=== PATIENT | male | born 1965 | race Caucasian/White ===

== ENCOUNTER → 2016-08-17 | Outpatient (CLI) | payer OTHER ==
[~2016-08-17] VITALS: Ht 182.9 cm; Wt 133.8 kg
[~2016-08-17] MED LIST: ADDERALL 20 MG20 MG PO; ALEVE220 MG PO; CARDIZEM CD180 MG PO; COUMADIN 4 MG TA4 M1 PO; COUMADIN 5 MG TA5 M1 PO; FLOMAX0.4 MG PO; IMITREX100 MG PO; LASIX 40 MG TAB40 M2 PO; LISINOPRIL5 MG PO; METHADONE HCL5 MG PO; NEURONTIN 300300 M1 PO; NEURONTIN 400400 M1 PO; PERCOCET 10-321 EACH PO; POTASSIUM20 PO; SORINE 80 MG TA80 M1; SOTALOL 120 MG120 MG PO; SPIRIVA INH; STOOL SOFTENER100 MG PO; SUBOXONE 8 MG-1 EAC3 SL; TESTOSTERO200 MG/1 M IM; TOFRANIL50 MG PO; XANAX1 MG PO
--- NOTE | ~2016-08-17 | HPC ---
[facility] [place] [address] PAIN MANAGEMENT CONSULTATION Name: LOLLYTODD JENNIFER Room #: REG [facility] Caroline.#: [id number] Admission: 08/17/16 Attend Phys: Ck Stoll DO Discharge: Date of : 65 Report #: [id number] THIS REPORT FOR: //name// CC: Rafael Stoll DATE OF SERVICE: 08/17/2016 The patient is a 51-year-old gentleman being treated for chronic pain syndrome, status post lumbar decompressive laminectomy and axial back pain, requiring complex medication management. Comorbidities include DJD bilateral knees, left greater than right. The patient was last seen in the pain clinic on 06/18/2016, continued on methadone increased from 5 t.i.d. to 2 b.i.d. (10 mg b.i.d.). He returns to pain clinic today noting medications have been helpful, though he is scheduled to get a left knee arthroscopy in the near future. He notes the pain has been chronic since 2006, sharp and aching pain, rates it at a 6 presently with current medication. We reviewed the fact that opiate medications are being used to provide analgesia adequate to support activities of daily living, not attempting to achieve a specific pain score on the 0-10 Visual Analog Scale. The current opiate medications are providing sufficient analgesia to allow the patient to participate in activities of daily living. The patient is not exhibiting any aberrant behavior suggestive of drug diversion. The patient is not having any adverse reactions to medications. The patient is not suffering from daytime somnolence or mental acuity changes. The patient is managing opiate-induced constipation with appropriate mruu-loe-dryyyha agents and dietary considerations. The patient was counseled on concern for caution with operating a motor vehicle while using opiate medications. A physical exam was performed and the patient's functional status was evaluated. All patients with back pain were advised against the bed rest greater than 4 days and were advised to return to normal activities. Pain score assessment was noted and the treatment plan was reviewed with the patient. All current medications, both prescribed and OTC were reviewed and reconciled on the electronic medical record. Tobacco screening was accomplished and smoking cessation was advised when indicated. BMI was noted and diet/exercise modification was recommended for all patients following outside normal parameters. I reviewed with the patient today their responsibilities to safeguard prescription medications, reviewed their responsibility to utilize medications only as prescribed by the physician. They are to seek and receive pain medications only from 1 physician group ( [facility]). They are to use 1 pharmacy and keep the clinic informed if they change pharmacies. Their responsibilities include making followup visits in a timely fashion and to avoid abrupt discontinuation of medication usage. Their responsibilities further include bringing their medications (bottles from the pharmacy with [address] [address] PAIN MANAGEMENT CONSULTATION Name: TODD AMBROCIO Room #: REG CLKiana Polanco#: [id number] Admission: 08/17/16 Attend Phys: Ck Stoll DO Discharge: Date of : 65 Report #: [id number] pills) to the visit for possible confirmation of pill counts and the patient understands it is their responsibility to submit to random drug screens to ensure both that the medications prescribed are present, and that no other controlled substances are present. All prescriptions provided today were generated electronically. PHYSICAL EXAMINATION: Shows a 51-year-old gentleman, BMI is 40 kilograms per meter squared. Vital signs are stable. Rises from chair using armrests, antalgic gait favoring the left leg. Well-healed surgical scar across the back. Alert and oriented to person, place and time, judged to be a reasonable historian. Modestly antalgic gait. Lumbar flexion is limited. ASSESSMENT: Symptomatic chronic pain syndrome, status post lumbar decompressive laminectomy, degenerative joint disease affecting bilateral knees, left greater than right and axial back pain, requiring complex medication management. RECOMMENDATION: Continue methadone 10 mg b.i.d. Continue gabapentin unchanged 300 mg one in the morning and two at night 400 mg. Did discuss postoperative pain with the patient. If his surgeon provides a short course of hydrocodone or oxycodone, I am willing to have the patient utilize that prescription. I suggest that he not change his methadone, continue 10 mg b.i.d. throughout the surgery and post-surgical course. I talked about need to be aggressive with physical therapy, postoperative. I will be happy to see him in 2 months for reevaluation. I did ask that he bring prescription bottles with him that the orthopedist provides. <ELECTRONICALLY SIGNED> By: Ck Stoll DO 08/21/16 0811 [id number] Ck Stoll DO /nt
[2016-08-17 14:42] VITALS: BP 107/76
== END | disposition home or self-care (01) ==
LOC: PAIN 07:11
DX: G89.4 Chronic pain syndrome (principal); M17.0 Bilateral primary osteoarthritis of knee

== ENCOUNTER → 2016-10-12 | Outpatient (CLI) | payer OTHER ==
[~2016-10-12] VITALS: Ht 182.9 cm; Wt 133.2 kg
[~2016-10-12] MED LIST changes: +METHADONE HCL 110 M1 PO
--- NOTE | ~2016-10-12 | HPC ---
[facility] [place] [address] PAIN MANAGEMENT CONSULTATION Name: TODD AMBROCIO Room #: REG CL Caroline.#: [id number] Admission: 10/12/16 Attend Phys: Ck Stoll, DO Discharge: Date of : 65 Report #: [id number] THIS REPORT FOR: //name// CC: Rafael Stoll The patient is a very pleasant 51-year-old gentleman being treated for lumbar radiculopathy status post decompressive laminectomy, requiring complex medication management, axial back pain. Last seen in the pain clinic on 06/18/2016, we increased methadone to 10 mg b.i.d., increased gabapentin from 300 to 400 mg 1 in the morning and 2 at night. He returns to pain clinic today noting medications are providing sufficient analgesia to participate in activities of daily living. Prior urine drug screen on 04/17/2016, was positive for prescribed medications. He is scheduled to have left knee arthroscopy with Dr. Shawn Carias October 15. Dr. Carias has given a prescription for hydrocodone 5/325, dispense 30 tablets for postoperative pain. I am aware of this and I agreed to let the patient continue that medication. I did suggest that he continue with his baseline methadone 10 mg b.i.d. throughout. He is having some increasing pain in the left hip. He has prior had a inguinal herniorrhaphy at this level. He is followed up with his general surgeon who feels that the hernia repair is not the issue, despite this he does have significant left testicular pain. He has had an ultrasound of this area. He may benefit from a CT scan of the abdominal wall at some point (?). Dr. Carias notes there may also have a component of some primary hip mediated pain, which certainly is reasonable as well. Today, we have elected to continue baseline narcotic unchanged, follow up after his knee arthroscopy, I have taken the liberty of writing for 2 months of current medication. Strongly recommend copious use of ice after physical therapy subsequent to the left knee arthroscopy. When I see him back in about 8 weeks, he should be 7 weeks postop from his knee surgery, we will reevaluate the inguinal hernia area. He may benefit from increasing gabapentin from 400 to 600 mg 1 in the morning and 2 at night. Hopefully, we will have his hip evaluated by Dr. Carias in the interim. If not, we can certainly order an x-ray of same. We reviewed the fact that opiate medications are being used to provide analgesia adequate to support activities of daily living, not attempting to achieve a specific pain score on the 0-10 Visual Analog Scale. The current opiate medications are providing sufficient analgesia to allow the patient to participate in activities of daily living. The patient is not exhibiting any aberrant behavior suggestive of drug diversion. The patient is not having any adverse reactions to medications. The patient is not suffering from daytime somnolence or mental acuity changes. The patient is managing opiate-induced constipation with appropriate eoer-uky-uywltxa agents and dietary considerations. The patient was counseled on concern for caution with operating [address] [address] PAIN MANAGEMENT CONSULTATION Name: TODD AMBROCIO Room #: REG TUAN Polanco#: [id number] Admission: 10/12/16 Attend Phys: Ck Stoll DO Discharge: Date of : 65 Report #: [id number] a motor vehicle while using opiate medications. A physical exam was performed and the patient's functional status was evaluated. All patients with back pain were advised against the bed rest greater than 4 days and were advised to return to normal activities. Pain score assessment was noted and the treatment plan was reviewed with the patient. All current medications, both prescribed and OTC were reviewed and reconciled on the electronic medical record. Tobacco screening was accomplished and smoking cessation was advised when indicated. BMI was noted and diet/exercise modification was recommended for all patients following outside normal parameters. I reviewed with the patient today their responsibilities to safeguard prescription medications, reviewed their responsibility to utilize medications only as prescribed by the physician. They are to seek and receive pain medications only from 1 physician group ( [facility]). They are to use 1 pharmacy and keep the clinic informed if they change pharmacies. Their responsibilities include making followup visits in a timely fashion and to avoid abrupt discontinuation of medication usage. Their responsibilities further include bringing their medications (bottles from the pharmacy with residual pills) to the visit for possible confirmation of pill counts and the patient understands it is their responsibility to submit to random drug screens to ensure both that the medications prescribed are present, and that no other controlled substances are present. All prescriptions provided today were generated electronically. PHYSICAL EXAMINATION: Shows a 51-year-old gentleman, BMI is 39.8 kg/m2. Alert and oriented to person, place and time, judged to be a reasonable historian. Vital signs are stable as noted in the EMR. Rises from chair using armrest, modestly antalgic gait favoring the left lower extremity, difficult to tell if this is primary knee or hip pain. Diffuse tenderness across the low back. Abdominal exam was deferred, but he does have tenderness in the left groin and left testicle. ASSESSMENT: Neuropathic pain, lumbar radiculopathy, status post decompressive laminectomy, axial back pain requiring complex medication management. RECOMMENDATIONS: As noted above, continue methadone 10 mg b.i.d. for another 2 months. Gabapentin 400 mg 1 in the morning and 2 at night. Follow up again in 2 months for reevaluation. Discharged in good and stable condition. The patient was seen for a prolonged visit today, approximately 25 minutes, [facility] [address] [place] [address] PAIN MANAGEMENT CONSULTATION Name: TODD AMBROCIO Room #: REG CL Caroline.#: [id number] Admission: 10/12/16 Attend Phys: Ck Stoll DO Discharge: Date of : 65 Report #: [id number] than 50% of time spent counseling the patient, reviewing therapeutic issues and comorbidities. By: [id number] Ck Stoll DO /nt
[2016-10-12 09:46] VITALS: BP 138/68
== END | disposition home or self-care (01) ==
LOC: PAIN 07:02
DX: M54.16 Radiculopathy, lumbar region (principal); G62.9 Polyneuropathy, unspecified; M54.9 Dorsalgia, unspecified

== ENCOUNTER → 2016-12-11 | Outpatient (CLI) | payer OTHER ==
[~2016-12-11] VITALS: Ht 182.9 cm; Wt 137.8 kg
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
[2016-12-11 13:34] VITALS: BP 159/72
== END | disposition home or self-care (01) ==
LOC: PAIN 06:25
DX: M54.16 Radiculopathy, lumbar region (principal); G89.4 Chronic pain syndrome; Z68.41 Body mass index [BMI] 40.0-44.9, adult; F17.200 Nicotine dependence, unspecified, uncomplicated

== ENCOUNTER → 2017-02-19 | Outpatient (CLI) | payer OTHER ==
[~2017-02-19] VITALS: Ht 182.9 cm; Wt 127.9 kg
[~2017-02-19] MED LIST changes: +AUGMENTIN 875875 MG PO; +NEURONTIN600 MG PO
--- NOTE | ~2017-02-19 | HPC ---
[facility] [place] [address] PAIN MANAGEMENT CONSULTATION Name: LOLLYTODD JENNIFER Room #: REG TUAN Polanco#: [id number] Admission: 02/19/17 Attend Phys: Ck Stoll, DO Discharge: Date of : 65 Report #: [id number] THIS REPORT FOR: //name// CC: Rafael Stoll The patient is a 51-year-old gentleman, prior seen in pain clinic at 12/11/2016. He was referred to me by Dr. Saad Arriaga, a longer history of intermittent alcohol abuse and opiate habituation. He has been sober for quite some time, Suboxone became expensive to the point, he was unable to utilize this agent. I was asked to consider methadone treatment for this gentleman and he has been stable on this agent. He has been on methadone 10 mg t.i.d. now for some time. He is in reasonably stable. He did follow up with [facility] regarding his knee surgery. He had surgery their back in September. He was hospitalized this past December for left lower quadrant abdominal pain and found to have diverticulitis. He has a colonoscopy scheduled on the . Surgeon at the time of hospitalization did give him antibiotics and unfortunately also prescription for hydrocodone. I did admonished the patient today that he is under opiate consent to treat contract with me and is to use NO opioids from any other provider. While I enabled him to use opiates per the orthopedics physician after his scheduled knee surgery, I knew that was going to be a short course and reasonable with osseous pathology secondary to the surgery. However, I did suggest that he should not use opiate analgesics for diverticulitis, as tends to slow GI transit, increases constipation concerns and exacerbates diverticulitis. He simply has abdominal pain for diverticulitis and this will resolve as the antibiotics help with any infection and "tincture of time" allows for decrease in colon inflammation. He does now understand that he should not be using any po opioids for this abd pain . Ongoing left knee pain, low back, chronic pain remains problematic, rates his pain at 8 on a VAS. PHYSICAL EXAMINATION: Shows 51-year-old gentleman, BMI is 38.2 kilograms per meter squared. Vital signs otherwise stable. We reviewed the fact that opiate medications are being used to provide analgesia adequate to support activities of daily living, not attempting to achieve a specific pain score on the 0-10 Visual Analog Scale. The current opiate medications are providing sufficient analgesia to allow the patient to participate in activities of daily living. The patient is not exhibiting any aberrant behavior suggestive of drug diversion. The patient is not having any adverse reactions to medications. The patient is not suffering from daytime somnolence or mental acuity changes. The patient is managing opiate-induced constipation with appropriate fojd-gzn-barpdfw agents and dietary considerations. The patient was counseled on concern for caution with operating a motor vehicle while using opiate medications. [address] [address] PAIN MANAGEMENT CONSULTATION Name: TODD AMBROCIO Room #: REG TUAN Polanco#: [id number] Admission: 02/19/17 Attend Phys: Ck Stoll DO Discharge: Date of : 65 Report #: [id number] A physical exam was performed and the patient's functional status was evaluated. All patients with back pain were advised against the bed rest greater than 4 days and were advised to return to normal activities. Pain score assessment was noted and the treatment plan was reviewed with the patient. All current medications, both prescribed and OTC were reviewed and reconciled on the electronic medical record. Tobacco screening was accomplished and smoking cessation was advised when indicated. BMI was noted and diet/exercise modification was recommended for all patients following outside normal parameters. I reviewed with the patient today their responsibilities to safeguard prescription medications, reviewed their responsibility to utilize medications only as prescribed by the physician. They are to seek and receive pain medications only from 1 physician group ( [facility]). They are to use 1 pharmacy and keep the clinic informed if they change pharmacies. Their responsibilities include making followup visits in a timely fashion and to avoid abrupt discontinuation of medication usage. Their responsibilities further include bringing their medications (bottles from the pharmacy with residual pills) to the visit for possible confirmation of pill counts and the patient understands it is their responsibility to submit to random drug screens to ensure both that the medications prescribed are present, and that no other controlled substances are present. All prescriptions provided today were generated electronically. Last UDS was 04/17/2016, positive for prescribed medications. The patient was given a prescription today for methadone 10 mg t.i.d., gabapentin increased from 400 to 600 mg t.i.d. Follow up in 2 months for reevaluation. We will get a urine drug screen at that time. No aberrant behavior suggestive for drug diversion, simply complying with opiate consent to treat contract. <ELECTRONICALLY SIGNED> By: Ck Stoll DO 02/24/17 0755 [id number] Ck Stoll DO /nt
[2017-02-19 12:41] VITALS: BP 125/82
== END ==
LOC: PAIN 07:18
DX: G89.29 Other chronic pain (principal); M25.562 Pain in left knee; M54.5 Low back pain

== ENCOUNTER → 2017-05-06 | Outpatient (CLI) | payer OTHER | LOC: MRI 04-27 06:43 | DX: M47.26 Other spondylosis with radiculopathy, lumbar region (principal) ==